=== PATIENT | male | born 1945 | race Caucasian/White ===

== ENCOUNTER → 2024-02-27 07:28 | Outpatient (CLI) | payer OTHER, SELFPAY ==
--- NOTE | 2024-02-27 | DI.ECHO.S_ITS ---
[facility]+ [facility] : : [address] : : [place] : : [id number] : : Phone: [phone] Echocardiogram Report + + :Name: JAROCHO LIND Study Date: 02/27/2024 Height: 71 in : :Hospital ReadingLocation: Weight: 220 lb : : Gender: Male BSA: 2.2 m2 : :: 1945 Age: 78 yrs BP: 131/87 mmHg: :Reason For Study: ATHEROSCLEROTIC HEART DISEASE : :Ordering Physician: LUCIA, : :YONAS Performed By: Apolonia Retana : :Referring: YONAS MYERS : + + Interpretation Summary The ejection fraction is estimated to be 55-60%. Grade III diastolic dysfunction. The left atrium is mildly dilated. The right ventricle is mildly dilated. The right ventricular systolic function is normal. There is mild mitral regurgitation. There is mild aortic regurgitation. Pulmonary artery pressures cannot be estimated because of the lack of a measurable TR jet velocity but the IVC suggests a CVP of around 3 mmHg, 3.9 cm. Procedure: A two-dimensional transthoracic echocardiogram with color flow and Doppler was performed. The study quality was technically adequate. There is no prior echocardiogram noted for this patient. The patient had occasional PVCs during the exam. The heart rate ranged between 44-61 bpm during the study. Left Ventricle: The left ventricle is normal in size and wall thickness. The ejection fraction is estimated to be 55-60%. Diastolic parameters suggest a restrictive filling pattern consistent with probable significantly elevated filling pressures. Right Ventricle: The right ventricle is mildly dilated. The right ventricular systolic function is normal. Atria: The left atrium is mildly dilated. Right atrial size is normal. There is no Doppler evidence for an interatrial shunt. Mitral Valve: The mitral valve is normal. There is mild mitral regurgitation. Aortic Valve: The aortic valve is trileaflet. The aortic valve opens well. There is no aortic valve stenosis. There is mild aortic regurgitation. Tricuspid Valve: The tricuspid valve is normal in structure and function. Pulmonary artery pressures cannot be estimated because of the lack of a measurable TR jet velocity but the IVC suggests a CVP of around 3 mmHg. Pulmonic Valve: The pulmonic valve is not well seen, but is grossly normal. There is trace pulmonic regurgitation. Great Vessels: The aortic root is normal size. The ascending aorta is mildly enlarged. The IVC is of normal diameter and collapses greater than 50% with a sniff. This suggests a low right atrial pressure of 3 mm Hg. Pericardium/ Pleura There is no pericardial effusion. There is no pleural effusion. MMode/2D Measurements & Calculations LVIDd: 4.8 cm LVOT diam: 2.2 cm LVIDs: 3.2 cm Ao root diam: 4.0 cm FS: 33.4 % asc Aorta Diam: 3.9 cm IVSd: 0.97 cm Ao Arch Diam (Prox Trans): 3.2 cm LVPWd: 0.90 cm LV blum. diameter/BSA (cm/m^2): 2.2 LV sys. diameter/BSA (cm/m^2): 1.5 LA A2 area: 24.0 cm2 RA long axis: 5.8 cm LA A4 area: 25.1 cm2 RA area: 17.2 cm2 LA length (vol): 6.1 cm RA vol: 43.5 ml LA vol: 83.7 ml RA : 19.8 ml/m2 LA vol index: 38.1 ml/m2 IVC diam: 1.8 cm RVD1 (basal): 4.2 cm TAPSE: 2.4 cm Doppler Measurements & Calculations Ao V2 max: 127.8 cm/sec LVOT Max Hossein: 104.5 cm/sec Ao V2 mean: 89.7 cm/sec LV V1 max P.4 mmHg Ao max P.5 mmHg LV V1 VTI: 23.9 cm Ao mean P.5 mmHg DANAY(I,D): 2.9 cm2 Ao V2 VTI: 31.4 cm DANAY(V,D): 3.2 cm2 sev ratio: 0.76 DANAY indexed to BSA (cm^2/m^2): 1.3 AI P1/2t: 861.5 msec AI dec slope: 135.7 cm/sec2 MV E max hossein: 84.2 cm/sec PA V2 max: 86.2 cm/sec MV A max hossein: 36.5 cm/sec PA V2 mean: 60.4 cm/sec MV E/A: 2.3 PA mean P.6 mmHg Med Peak E' Hossein: 6.0 cm/sec PA pr(Accel): 24.2 mmHg E/E' med: 14.1 Lat Peak E' Hossein: 7.7 cm/sec E/E' lat: 10.9 E/e' average: 12.5 MV dec time: 0.19 sec SVLVOT): 92.0 ml Reading Physician:12:49 PM
== END ==
PROVIDERS: Referring Provider Chiropractor; Visit Provider Chiropractor
DX: I25.10 Atherosclerotic heart disease of native coronary artery without angina pectoris (principal); I08.0 Rheumatic disorders of both mitral and aortic valves; I77.89 Other specified disorders of arteries and arterioles
CPT/HCPCS: 93306